=== PATIENT | female | born 1950 | race Two or more races ===

== ENCOUNTER 2025-08-28 12:48 | Emergency (ER) | payer OTHER ==
[~2025-08-28] VITALS: Ht 160 cm; Wt 99.8 kg
[2025-08-28] MEDS ORDERED: COZAAR25 MG (13:07)
[2025-08-28] MEDS ORDERED: DEXAMETHASONE SODIUM PHOSPHATE 4 MG/ML VIAL IM ONE (13:45)
[2025-08-28 16:42] VITALS: BP 135/89; O2SAT 98
== END 2025-08-28 16:43 | disposition home or self-care (01) ==
LOC: ER 12:48
DX: S00.83XA Contusion of other part of head, initial encounter (principal); W18.39XA Other fall on same level, initial encounter; Y93.89 Activity, other specified; Y92.018 Other place in single-family (private) house as the place of occurrence of the external cause; Y99.9 Unspecified external cause status; I10 Essential (primary) hypertension; G62.9 Polyneuropathy, unspecified
CPT/HCPCS: 70450; 96372; 99283; J1100